=== PATIENT | female | born 1970 | race American Indian/Alaskan Native ===

== ENCOUNTER 2016-12-20 08:39 | Emergency (ER) | payer BC ==
[2016-12-20 08:39] VITALS: BMI 44.9
[2016-12-20 08:51] VITALS: TEMP 98.1; O2SAT 98
[2016-12-20] MEDS ORDERED: DiphenhydrAMINE 50 mg/ml Inj IVP STA (08:57)
--- NOTE | 2016-12-20 09:22 | ED PDOC ---
Arrival/HPI - General Chief Complaint: Headache Time Seen by Provider: 12/20/16 08:40 Historian: Patient - History of Present Illness Narrative History of Present Illness (Text): 12/20/16 08:55 Rianna Hazel, a 45 year old female, whose past medical history includes hypertension, presents to the emergency department complaining of a headache for the past two days. Patient also notes that she took motrin, but this did not alleviate her symptoms. She notes that the light bothers her. Patient denies any nausea, vomiting, fevers, urinary problems, or any other complaints at this time. PMD: Dr. Norman Time/Duration: Other (2 days) Symptom Onset: Sudden Symptom Course: Unchanged Activities at Onset: Rest Modifying Factors (Text): motrin did not alleviate headache Context: Home Associated Symptoms (Text): none Past Medical History - Provider Review Nursing Documentation Reviewed: Yes - Past History Past History: No Previous - Infectious Disease Hx of Infectious Diseases: None - Tetanus Immunization Tetanus Immunization: Unknown - Past Medical History Past Medical History: No Previous - Cardiac Hx Cardiac Disorders: Yes Hx Hypertension: Yes - Pulmonary Hx Respiratory Disorders: No - Neurological Hx Neurological Disorder: No - HEENT Hx HEENT Disorder: No - Renal Hx Renal Disorder: No - Endocrine/Metabolic Hx Endocrine Disorders: No - Hematological/Oncological Hx Blood Disorders: No - Integumentary Hx Dermatological Disorder: No - Musculoskeletal/Rheumatological Hx Musculoskeletal Disorders: Yes (ELBOW TENDONITIS) Hx Falls: No - Gastrointestinal Hx Gastrointestinal Disorders: No - Genitourinary/Gynecological Hx Genitourinary Disorders: No (4 ABORTIONS, TUBAL LIGATION) - Psychiatric Hx Psychophysiologic Disorder: No Hx Anxiety: No Hx Bipolar Disorder: No Hx Depression: No Hx Emotional Abuse: No Hx Hallucinations: No Hx Panic Disorder: No Hx Post Traumatic Stress Disorder: No Hx Psychosis: No Hx Physical Abuse: No Hx Schizophrenia: No Hx Sexual Abuse: No Hx Substance Use: No - Surgical History Hx Tubal Ligation: Yes - Anesthesia Hx Anesthesia: Yes Hx Anesthesia Reactions: No Hx Malignant Hyperthermia: No - Suicidal Assessment Feels Threatened In Home Enviroment: No Family/Social History - Physician Review Nursing Documentation Reviewed: Yes Family/Social History: No Known Family HX Smoking Status: Never Smoked Hx Alcohol Use: Yes (SOCIALLY) Hx Substance Use: No Hx Substance Use Treatment: No Allergies/Home Meds Allergies/Adverse Reactions: Allergies No Known Allergies Allergy (Verified 04/16/17 08:47) Home Medications: Home Meds Medication Instructions Recorded Confirmed amLODIPine [Norvasc] 10 mg PO DAILY 05/28/16 12/20/16 Review of Systems - Physician Review All systems were reviewed & negative as marked: Yes - Review of Systems Constitutional: absent: Fevers Gastrointestinal: absent: Nausea, Vomiting Genitourinary Female: absent: Dysuria, Frequency, Hematuria, Urine Output Changes Neurological: Headache Physical Exam Vital Signs Reviewed: Yes Vital Signs Temp Pulse Resp BP Pulse Ox 12/20/16 10:18 68 16 116/60 98 12/20/16 08:43 98.1 F 75 20 109/79 98 12/20/16 08:39 98.1 F 75 20 109/79 98 Temperature: Afebrile Blood Pressure: Normal Pulse: Regular Respiratory Rate: Normal Appearance: Positive for: Well-Appearing, Non-Toxic, Comfortable Pain Distress: None Mental Status: Positive for: Alert and Oriented X 3 - Systems Exam Head: Present: Atraumatic, Normocephalic Pupils: Present: PERRL Extroacular Muscles: Present: EOMI Conjunctiva: Present: Normal Mouth: Present: Moist Mucous Membranes Neck: Present: Normal Range of Motion, Other (neck is supple with no meningismus ) Respiratory/Chest: Present: Clear to Auscultation, Good Air Exchange. No: Respiratory Distress, Accessory Muscle Use Cardiovascular: Present: Regular Rate and Rhythm, Normal S1, S2. No: Murmurs Abdomen: Present: Normal Bowel Sounds. No: Tenderness, Distention, Peritoneal Signs Upper Extremity: Present: Normal Inspection. No: Cyanosis, Edema Lower Extremity: Present: Normal Inspection. No: Edema Neurological: Present: GCS=15, CN II-XII Intact, Speech Normal Skin: Present: Warm, Dry, Normal Color. No: Rashes Psychiatric: Present: Alert, Oriented x 3, Normal Insight, Normal Concentration Medical Decision Making ED Course and Treatment: 12/20/16 09:26 Impression: 45 year old female with headache. Differential Diagnosis include but are not limited to: Plan: -- CT head -- Urinalysis -- Labs -- Benadryl, Reglan -- Reassess and disposition Prior Visits: Notes and results from previous visits were reviewed. Patient reported to the emergency department on 10/13/16 for evaluation of left sided rib pain and cough. Progress Notes: CT head: Creator : Jesus Avila MD FINDINGS: HEMORRHAGE: No acute parenchymal, subarachnoid or extra-axial hemorrhage. BRAIN: Mild chronic periventricular white matter ischemic changes seen extending peripherally into the deep white matter both cerebral hemispheres. VENTRICLES: Unremarkable. No hydrocephalus. CALVARIUM: Unremarkable. PARANASAL SINUSES: Frontal sinuses are hypoplastic. Remaining visualized paranasal sinuses are well-developed. No mucoperiosteal significant inflammatory changes. MASTOID AIR CELLS: Subtotal opacification left mastoid air complex. There also appears to be partial with opacification of the right mastoid air complex. OTHER FINDINGS: None. IMPRESSION: No acute intracranial hemorrhage. Mild chronic white matter ischemic changes. 12/20/16 10:15 Patient reports she currently does not have a headache. Patient asks for discharge. On reevaluation the patient feels better and is in no acute distress. I have discussed the results and plan with the patient, who expresses understanding. Will discharge patient home.Patient agrees with the plan to be discharged home. Patient is stable for discharge. Patient was instructed to follow up with PMD in 1-2 days or return if symptoms persist/worsen or new concerning symptoms arise. Patient given the opportunity to ask questions, and all questions were answered. - Lab Interpretations Lab Results: 12/20/16 09:00 12/20/16 09:00 Lab Results 12/20/16 09:00: WBC 5.1 D, RBC 4.27, Hgb 12.7, Hct 37.1, MCV 86.9, MCH 29.7, MCHC 34.2, RDW 13.3, Plt Count 304, MPV 9.7, Gran % 50.2, Lymph % (Auto) 41.3 H , [place] % (Auto) 6.9 H, Eos % (Auto) 0.8 L, Baso % (Auto) 0.8, Gran # 2.55, Lymph # 2.1, [place] # 0.4, Eos # 0.0, Baso # 0.04, PT 10.4, INR 0.96, APTT 23.8, Sodium 139, Potassium 3.9, Chloride 105, Carbon Dioxide 24, Anion Gap 14, BUN 14 , Creatinine 0.7, Est GFR ( Amer) > 60, Est GFR (Non-Af Amer) > 60, Random Glucose 121 H, Calcium 9.0, Total Bilirubin 0.5, AST 21, ALT 30, Alkaline Phosphatase 50, Total Protein 8.3, Albumin 3.9, Globulin 4.5, Albumin/ Globulin Ratio 0.9 L - RAD Interpretation Radiology Orders: 12/20/16 08:57 HEAD W/O CONTRAST [CT] Stat - Medication Orders Current Medication Orders: Discontinued Medications Diphenhydramine HCl (Benadryl) 25 mg IVP STAT STA Stop: 12/20/16 08:58 Last Admin: 12/20/16 09:10 Dose: 25 MG IVP Administration Document 12/20/16 09:10 SRE (Rec: 12/20/16 09:14 SRE [id number]) Charges for Administration # of IVP Administrations 1 Metoclopramide HCl (Reglan) 10 mg IVP STAT STA Stop: 12/20/16 08:58 Last Admin: 12/20/16 09:14 Dose: 10 MG IVP Administration Document 12/20/16 09:14 SRE (Rec: 12/20/16 09:14 SRE [id number]) Charges for Administration # of IVP Administrations 1 - Scribe Statement The provider has reviewed the documentation as recorded by the Scribe Provider Attestation: Abdulkadir Mcbride All medical record entries made by the Scribe were at my direction and personally dictated by me. I have reviewed the chart and agree that the record accurately reflects my personal performance of the history, physical exam, medical decision making, and the department course for this patient. I have also personally directed, reviewed, and agree with the discharge instructions and disposition. Disposition/Present on Arrival - Present on Arrival Any Indicators Present on Arrival: No History of DVT/PE: No History of Uncontrolled Diabetes: No Urinary Catheter: No History of Decub. Ulcer: No History Surgical Site Infection Following: None - Disposition Have Diagnosis and Disposition been Completed?: Yes Diagnosis: Headache Disposition: HOME/ ROUTINE Disposition Time: 10:02 Condition: STABLE Discharge Instructions (ExitCare): Acute Headache (ED) Additional Instructions: please follow up with your doctor. return to er with worsening symptoms or concerns Prescriptions: Acetaminophen/Butalbital/Caf [Fioricet] 1 tab PO Q8 PRN #20 tab PRN Reason: Headache Referrals: Cornell Padilla MD [Staff Provider] - Follow up with primary Steve Padilla MD [Staff Provider] - Follow up with primary Forms: WORK NOTE
[2016-12-20 09:27] LABS: ADD MANUAL DIFF? NO
[2016-12-20 09:36] LABS: BASO # 0.04 K/mm3 (0.0-2.0); BASO % 0.8 % (0.0-3.0); EOS % 0.8 % (1.5-5.0); GRAN # 2.55 (1.4-6.5); GRAN % 50.2 % (50.0-68.0); HEMATOCRIT 37.1 % (36.0-48.0); LYMPH # 2.1 (1.2-3.4); LYMPH % 41.3 % (22.0-35.0); MEAN CELL VOLUME 86.9 fL (80.0-105.0); MEAN CORPUSCULAR HEMOGLOBIN 29.7 pg (25.0-35.0); MEAN CORPUSCULAR HGB CONC 34.2 g/dl (31.0-37.0); MEAN PLATELET VOLUME 9.7 fl (7.0-11.0); MONO # 0.4 (0.1-0.6); MONO % 6.9 % (1.0-6.0); PLATELET COUNT 304 10^3/uL (120.0-450.0); RED CELL DISTRIBUTION WIDTH 13.3 % (11.5-14.5); WHITE BLOOD COUNT 5.1 10^3/ul (4.5-11.0)
--- NOTE | 2016-12-20 09:42 | CT ---
PROCEDURE: CT HEAD WITHOUT CONTRAST. HISTORY: aguiar COMPARISON: None available. TECHNIQUE: Axial computed tomography images were obtained through the head/brain without intravenous contrast. Radiation dose: Total exam DLP = 677.45 mGy-cm. This CT exam was performed using one or more of the following dose reduction techniques: Automated exposure control, adjustment of the mA and/or kV according to patient size, and/or use of iterative reconstruction technique. FINDINGS: HEMORRHAGE: No acute parenchymal, subarachnoid or extra-axial hemorrhage. BRAIN: Mild chronic periventricular white matter ischemic changes seen extending peripherally into the deep white matter both cerebral hemispheres. The VENTRICLES: Unremarkable. No hydrocephalus. CALVARIUM: Unremarkable. PARANASAL SINUSES: Frontal sinuses are hypoplastic. Remaining visualized paranasal sinuses are well-developed. No mucoperiosteal significant inflammatory changes. MASTOID AIR CELLS: Subtotal opacification left mastoid air complex. There also appears to be partial with opacification of the right mastoid air complex. OTHER FINDINGS: None. IMPRESSION: No acute intracranial hemorrhage. Mild chronic white matter ischemic changes.
[2016-12-20 09:45] LABS: ALB/GLOB RATIO 0.9 (1.1-1.8); ALKALINE PHOSPHATASE 50 U/L (38-133); ALT/SGPT 30 U/L (7-56); AST/SGOT 21 U/L (15-39); BILIRUBIN,TOTAL 0.5 mg/dL (0.2-1.3); BLOOD UREA NITROGEN 14 mg/dL (7-21); CARBON DIOXIDE 24 mmol/L (21-33); CHLORIDE 105 mmol/L (98-107); GFR AFRICAN-AMERICAN > 60; GLUCOSE,RANDOM 121 mg/dL (70-110); POTASSIUM 3.9 mmol/L (3.6-5.0); SODIUM 139 mmol/L (132-148); TOTAL PROTEIN 8.3 g/dL (5.8-8.3)
[2016-12-20 09:46] LABS: INR 0.96 (0.93-1.08); PARTIAL THROMBOPLASTIN TIME 23.8 Seconds (23.7-30.8)
[2016-12-20 10:24] VITALS: BP 116/60; PULSE 68; RESP 16
== END 2016-12-20 10:25 | disposition home or self-care (01) ==
LOC: ED 08:39
DX: R51 Headache (principal)
CPT/HCPCS: 70450; 80053; 85025; 85610; 85730; 96374; 96375; 99285; J1200; J2765

== ENCOUNTER 2017-04-05 18:08 | Emergency (ER) | payer BC ==
[2017-04-05 18:44] VITALS: RESP 18; TEMP 98.6; BMI 43.3
--- NOTE | 2017-04-05 19:23 | ED PDOC ---
Arrival/HPI - General Chief Complaint: Eye Problem Time Seen by Provider: 04/05/17 19:01 Historian: Patient - History of Present Illness Narrative History of Present Illness (Text): 04/05/17 19:19 46 y/o female, pmh including htn, wears reading glasses but no eye contact, no eye surgery, c/o send in by Dr. Jose Luis Trinh (opthalmologist) for elevation of the rt. eye intraocular pressure. Pt. stated that she feel rt. eye pressure about 2 days ago, associatd with the headache and rt. eye redness, no change in vision, no dizziness, no palpitation, no neck pain, no numbness or tingling, no other medical or psychological complaints. Past Medical History - Provider Review Nursing Documentation Reviewed: Yes - Past History Past History: No Previous - Infectious Disease Hx of Infectious Diseases: None - Tetanus Immunization Tetanus Immunization: Unknown - Past Medical History Past Medical History: No Previous - Cardiac Hx Cardiac Disorders: Yes Hx Hypertension: Yes - Pulmonary Hx Respiratory Disorders: No - Neurological Hx Neurological Disorder: No - HEENT Hx HEENT Disorder: No - Renal Hx Renal Disorder: No - Endocrine/Metabolic Hx Endocrine Disorders: No - Hematological/Oncological Hx Blood Disorders: No - Integumentary Hx Dermatological Disorder: No - Musculoskeletal/Rheumatological Hx Musculoskeletal Disorders: Yes (ELBOW TENDONITIS) Hx Falls: No - Gastrointestinal Hx Gastrointestinal Disorders: No - Genitourinary/Gynecological Hx Genitourinary Disorders: No (4 ABORTIONS, TUBAL LIGATION) - Psychiatric Hx Psychophysiologic Disorder: No Hx Anxiety: No Hx Bipolar Disorder: No Hx Depression: No Hx Emotional Abuse: No Hx Hallucinations: No Hx Panic Disorder: No Hx Post Traumatic Stress Disorder: No Hx Psychosis: No Hx Physical Abuse: No Hx Schizophrenia: No Hx Sexual Abuse: No Hx Substance Use: No - Surgical History Hx Tubal Ligation: Yes - Anesthesia Hx Anesthesia: Yes Hx Anesthesia Reactions: No Hx Malignant Hyperthermia: No - Suicidal Assessment Feels Threatened In Home Enviroment: No Family/Social History - Physician Review Nursing Documentation Reviewed: Yes Family/Social History: Unknown Family HX Smoking Status: Never Smoked Hx Alcohol Use: Yes (SOCIALLY) Hx Substance Use: No Hx Substance Use Treatment: No Allergies/Home Meds Allergies/Adverse Reactions: Allergies No Known Allergies Allergy (Verified 12/20/16 08:47) Home Medications: Home Meds Medication Instructions Recorded Confirmed amLODIPine [Norvasc] 10 mg PO DAILY 05/28/16 04/05/17 Review of Systems - Review of Systems Constitutional: absent: Fatigue, Fevers Eyes: Other (rt. eye redness and pressure sensation). absent: Vision Changes ENT: absent: Hearing Changes Respiratory: absent: SOB, Cough Cardiovascular: absent: Chest Pain Gastrointestinal: absent: Abdominal Pain, Nausea, Vomiting Skin: absent: Rash, Pruritis, Skin Lesions, Ulcer Neurological: absent: Headache, Dizziness, Focal Weakness Physical Exam Vital Signs Reviewed: Yes Vital Signs Temp Pulse Resp BP Pulse Ox 04/05/17 18:44 98.6 F 70 18 145/84 100 Temperature: Afebrile Blood Pressure: Normal Pulse: Regular Respiratory Rate: Normal Appearance: Positive for: Well-Appearing, Non-Toxic, Comfortable Pain Distress: None Mental Status: Positive for: Alert and Oriented X 3 - Systems Exam Head: Present: Atraumatic, Normocephalic, Other (no temporal artery tenderness. ). No: Tenderness, Contusion, Swelling, Ecchymosis, Abrasion, Laceration Pupils: Present: PERRL Extroacular Muscles: Present: EOMI, Other (Eyes: bilateral vision without correction 20/25, rt. eye vision without correction 20/25 vs. lt. eye vision without correction 20/25, +rt. conjunctivitis with mild tearing with no fluorsein up take, no corneal abrasion or laceration, FREOM without limitation, no periorbital swelling or drooping eyelids, rt. intraocular pressure is 21) Mouth: Present: Moist Mucous Membranes Neck: Present: Normal Range of Motion Respiratory/Chest: Present: Clear to Auscultation, Good Air Exchange. No: Respiratory Distress, Accessory Muscle Use Cardiovascular: Present: Regular Rate and Rhythm, Normal S1, S2. No: Murmurs Abdomen: Present: Normal Bowel Sounds. No: Tenderness, Distention, Peritoneal Signs Back: Present: Normal Inspection Upper Extremity: Present: Normal Inspection. No: Cyanosis, Edema Lower Extremity: Present: Normal Inspection. No: Edema Neurological: Present: GCS=15, CN II-XII Intact, Speech Normal Skin: Present: Warm, Dry, Normal Color. No: Rashes Psychiatric: Present: Alert, Oriented x 3, Normal Insight, Normal Concentration Medical Decision Making ED Course and Treatment: 04/05/17 19:24 -CT orbital/head -Intraocular pressure -Call Dr. wolf for consult. 04/05/17 22:14 -CT head and orbital show no acute findings. -I spoke to Dr. wolf and discussed the case in detail which he stated that he didn't send the patient to the ER which he stated that her introcular pressure on the rt. eye is on the upper normal limit and not high with no acute treatment needed, just need outpatient follow up with no other treatment needed. -rt. eye conjunctivitis resolved which patient stated that the opthalmologist Dr. Dumont prescribed the drop for her rt. eye redness. -Discharge home with education on follow up with your own pmd and opthamologist within 2 days, fill the prescription that you prescribed by your electrical maintenance technician , return to the ER for any new or worsening signs or symptoms. Please avoid all eye products including the eyelashes make or artificial eye lashes. - RAD Interpretation Radiology Orders: 04/05/17 19:35 HEAD W/O CONTRAST [CT] Stat ORBITS/ FACIALS W/O CONTRAST [CT] Stat CT Head: FINDINGS: Brain: No intracranial hemorrhage. No mass. No definite edema. Ventricles: No hydrocephalus. Bones/joints: No acute fracture. Soft tissues: Unremarkable. Mastoid air cells: Partial opacification of LEFT mastoid, stable. IMPRESSION: 1. No acute intracranial abnormality. 2. See orbital CT report for additional details. 3. Incidental/non-acute findings are described above. Thank you for allowing us to participate in the care of your patient. Dictated and Authenticated by: Felipe Gomez MD 04/05/2017 9:38 PM Eastern Time ([place] & [place]) -------- CT orbit: COMPARISON: CT - HEAD W/O CONTRAST 12/20/2016 9:21:14 AM FINDINGS: Orbits: Unremarkable as visualized. Sinuses: No acute sinusitis. Bones/joints: No acute fracture. Soft tissues: Unremarkable. IMPRESSION: 1. No acute findings. 2. Non-acute findings are described above. Thank you for allowing us to participate in the care of your patient. Dictated and Authenticated by: Felipe Gomez MD 04/05/2017 9:42 PM Eastern Time ([place] & [place]) Hand Screen Printer: Radiologist - PA / BIOINFORMATICS DEVELOPER / Resident Statement MD/DO has reviewed & agrees with the documentation as recorded. Disposition/Present on Arrival - Present on Arrival Any Indicators Present on Arrival: No History of DVT/PE: No History of Uncontrolled Diabetes: No Urinary Catheter: No History of Decub. Ulcer: No History Surgical Site Infection Following: None - Disposition Have Diagnosis and Disposition been Completed?: Yes Diagnosis: Conjunctivitis Disposition: HOME/ ROUTINE Disposition Time: 22:18 Patient Plan: Discharge Condition: GOOD Additional Instructions: -Discharge home with education on follow up with your own pmd and opthamologist within 2 days, fill the prescription that you prescribed by your electrical maintenance technician , return to the ER for any new or worsening signs or symptoms. Please avoid all eye products including the eyelashes make or artificial eye lashes. Referrals: Jose Luis Norman MD [Primary Care Provider] - Follow up with primary Jose Luis Trinh MD [Staff Provider] - Follow up with primary Forms: [facility] (Mongolian), WORK NOTE
--- NOTE | 2017-04-05 21:39 | CT ---
EXAM: CT Head Without Intravenous Contrast CLINICAL HISTORY: 46 years old, female; Pain; Headache; Tension; Additional info: Headache with rt. Orbital pressure TECHNIQUE: Axial computed tomography images of the head/brain without intravenous contrast. This CT exam was performed using one or more of the following dose reduction techniques: automated exposure control, adjustment of the mA and/or kV according to patient size, and/or use of iterative reconstruction technique. COMPARISON: CT - HEAD W/O CONTRAST 12/20/2016 9:21:14 AM FINDINGS: Brain: No intracranial hemorrhage. No mass. No definite edema. Ventricles: No hydrocephalus. Bones/joints: No acute fracture. Soft tissues: Unremarkable. Mastoid air cells: Partial opacification of LEFT mastoid, stable. IMPRESSION: 1. No acute intracranial abnormality. 2. See orbital CT report for additional details. 3. Incidental/non-acute findings are described above.
--- NOTE | 2017-04-05 21:42 | CT ---
EXAM: CT Orbits Without Intravenous Contrast CLINICAL HISTORY: 46 years old, female; Pain; Eye pain; Right; Additional info: Headache with rt. Orbital pressure TECHNIQUE: Axial computed tomography images of the orbits without intravenous contrast. This CT exam was performed using one or more of the following dose reduction techniques: automated exposure control, adjustment of the mA and/or kV according to patient size, and/or use of iterative reconstruction technique. Coronal and sagittal reformatted images were created and reviewed. COMPARISON: CT - HEAD W/O CONTRAST 12/20/2016 9:21:14 AM FINDINGS: Orbits: Unremarkable as visualized. Sinuses: No acute sinusitis. Bones/joints: No acute fracture. Soft tissues: Unremarkable. IMPRESSION: 1.No acute findings. 2.Non-acute findings are described above.
[2017-04-05 22:40] VITALS: BP 149/86; PULSE 81; O2SAT 97
== END 2017-04-05 22:39 | disposition home or self-care (01) ==
LOC: ED 18:08
DX: H10.9 Unspecified conjunctivitis (principal); I10 Essential (primary) hypertension

== ENCOUNTER 2017-07-21 13:07 | Emergency (ER) | payer BC ==
[2017-07-21 13:46] VITALS: BP 158/98; PULSE 75; RESP 18; TEMP 98; O2SAT 99; BMI 44.4
--- NOTE | 2017-07-21 14:48 | ED PDOC ---
Arrival/HPI - General Chief Complaint: Upper Extremity Problem/Injury Time Seen by Provider: 07/21/17 13:18 Historian: Patient - History of Present Illness Narrative History of Present Illness (Text): 07/21/17 14:45 A 46 year old female presents to the emergency department complaining of right elbow pain for 1 year. Patient reports her pain is exacerbated with extension of her elbow. She notes she is right handed. Patient denies any injury, trauma, fever, chills, nausea, vomiting, abdominal pain, chest pain, shortness of breath , cough or any other complaints. Time/Duration: Other (1 year) Symptom Course: Unchanged Quality: Other Context: Home Past Medical History - Provider Review Nursing Documentation Reviewed: Yes - Past History Past History: No Previous - Infectious Disease Hx of Infectious Diseases: None - Tetanus Immunization Tetanus Immunization: Unknown - Past Medical History Past Medical History: No Previous - Cardiac Hx Cardiac Disorders: Yes Hx Hypertension: Yes - Pulmonary Hx Respiratory Disorders: No - Neurological Hx Neurological Disorder: No - HEENT Hx HEENT Disorder: No - Renal Hx Renal Disorder: No - Endocrine/Metabolic Hx Endocrine Disorders: No - Hematological/Oncological Hx Blood Disorders: No - Integumentary Hx Dermatological Disorder: No - Musculoskeletal/Rheumatological Hx Musculoskeletal Disorders: Yes (ELBOW TENDONITIS) Hx Falls: No - Gastrointestinal Hx Gastrointestinal Disorders: No - Genitourinary/Gynecological Hx Genitourinary Disorders: No (4 ABORTIONS, TUBAL LIGATION) - Psychiatric Hx Psychophysiologic Disorder: No Hx Anxiety: No Hx Bipolar Disorder: No Hx Depression: No Hx Emotional Abuse: No Hx Hallucinations: No Hx Panic Disorder: No Hx Post Traumatic Stress Disorder: No Hx Psychosis: No Hx Physical Abuse: No Hx Schizophrenia: No Hx Sexual Abuse: No Hx Substance Use: No - Surgical History Hx Tubal Ligation: Yes - Anesthesia Hx Anesthesia: Yes Hx Anesthesia Reactions: No Hx Malignant Hyperthermia: No - Suicidal Assessment Feels Threatened In Home Enviroment: No Family/Social History - Physician Review Nursing Documentation Reviewed: Yes Family/Social History: No Known Family HX Smoking Status: Never Smoked Hx Alcohol Use: Yes (SOCIALLY) Hx Substance Use: No Hx Substance Use Treatment: No Allergies/Home Meds Allergies/Adverse Reactions: Allergies No Known Allergies Allergy (Verified 12/20/16 08:47) Home Medications: Home Meds Medication Instructions Recorded Confirmed amLODIPine [Norvasc] 10 mg PO DAILY 05/28/16 04/05/17 Review of Systems - Physician Review All systems were reviewed & negative as marked: Yes - Review of Systems Constitutional: absent: Fevers, Night Sweats Respiratory: absent: SOB, Cough Cardiovascular: absent: Chest Pain Gastrointestinal: absent: Abdominal Pain, Nausea, Vomiting Musculoskeletal: Other (Right elbow pain) Physical Exam Vital Signs Reviewed: Yes Vital Signs Temp Pulse Resp BP Pulse Ox 07/21/17 13:45 98.0 F 75 18 158/98 H 99 Temperature: Afebrile Blood Pressure: Hypertensive Pulse: Regular Respiratory Rate: Normal Appearance: Positive for: Well-Appearing, Non-Toxic, Comfortable Pain Distress: None Mental Status: Positive for: Alert and Oriented X 3 - Systems Exam Head: Present: Atraumatic, Normocephalic Pupils: Present: PERRL Extroacular Muscles: Present: EOMI Conjunctiva: Present: Normal Mouth: Present: Moist Mucous Membranes Neck: Present: Normal Range of Motion Respiratory/Chest: Present: Clear to Auscultation, Good Air Exchange. No: Respiratory Distress, Accessory Muscle Use Cardiovascular: Present: Regular Rate and Rhythm, Normal S1, S2. No: Murmurs Abdomen: Present: Normal Bowel Sounds. No: Tenderness, Distention, Peritoneal Signs Back: Present: Normal Inspection Upper Extremity: Present: Normal ROM, NORMAL PULSES, Tenderness (point tenderness to posterior aspect of right elbow), Neurovascularly Intact. No: Cyanosis, Edema, Swelling, Erythema, Temperature Abnormalties, Deformity Lower Extremity: Present: Normal Inspection. No: Edema Neurological: Present: GCS=15, CN II-XII Intact, Speech Normal Skin: Present: Warm, Dry, Normal Color. No: Rashes Psychiatric: Present: Alert, Oriented x 3, Normal Insight, Normal Concentration Medical Decision Making ED Course and Treatment: 07/21/17 14:45 Impression: A 46 year old female with right elbow pain for 1 year Plan: -- Right elbow xray -- Toradol -- Reassess and disposition Progress Notes: - RAD Interpretation Radiology Orders: 07/21/17 14:01 ELBOW RIGHT 3 VIEWS ROUTINE [RAD] Stat - Medication Orders Current Medication Orders: Discontinued Medications Ketorolac Tromethamine (Toradol) 60 mg IM STAT STA Stop: 07/21/17 14:02 Last Admin: 07/21/17 14:17 Dose: 60 mg MAR Pain Assessment Document 07/21/17 14:17 HI (Rec: 07/21/17 14:17 [facility]-[id number]) Pain Reassessment Is this a pain reassessment? No Sleep Is patient sleeping during reassessment? No Presence of Pain Presence of Pain Yes Pain Scale Used Pain Scale Used Numeric Location Left, Right or Bilateral Right Upper or Lower Lower Pain Location Body Site Arm IM Administration Charges Document 07/21/17 14:17 HI (Rec: 07/21/17 14:17 [id number]) Charges for Administration # of IM Administrations 1 - Scribe Statement The provider has reviewed the documentation as recorded by the Anuibe Joanne Cervantes Provider Scribe Attestation: All medical record entries made by the Scribe were at my direction and personally dictated by me. I have reviewed the chart and agree that the record accurately reflects my personal performance of the history, physical exam, medical decision making, and the department course for this patient. I have also personally directed, reviewed, and agree with the discharge instructions and disposition. Disposition/Present on Arrival - Present on Arrival Any Indicators Present on Arrival: No History of DVT/PE: No History of Uncontrolled Diabetes: No Urinary Catheter: No History of Decub. Ulcer: No History Surgical Site Infection Following: None - Disposition Have Diagnosis and Disposition been Completed?: Yes Diagnosis: Elbow pain Disposition: HOME/ ROUTINE Disposition Time: 15:10 Condition: GOOD Discharge Instructions (ExitCare): Elbow Sprain (ED) Additional Instructions: Thank you for letting us take care of you today. You were treated for elbow pain. The emergency medical care you received today was directed at your acute symptoms. If you were prescribed any medication, please fill it and take as directed. It may take several days for your symptoms to resolve. Return to the Emergency Department if your symptoms worsen, do not improve, or if you have any other problems. Please contact your doctor or call one of the physicians/clinics you have been referred to that are listed on the Patient Visit Information form that is included in your discharge packet. Bring any paperwork you were given at discharge with you along with any medications you are taking to your follow up visit. Our treatment cannot replace ongoing medical care by a primary care provider (PCP) outside of the emergency department. Thank you for allowing the [facility] team to be part of your care today. Follow up with Dr. Norman as scheduled next week for re-evaluation and further management. Prescriptions: Cyclobenzaprine [Cyclobenzaprine HCl] 10 mg PO Q8 PRN #20 tab PRN Reason: Muscle Spasm Ibuprofen [Motrin] 600 mg PO Q6 PRN #20 tab PRN Reason: Pain, Moderate (4-7) Referrals: Jose Luis Norman MD [Primary Care Provider] - Follow up with primary Forms: [employer] (Namibian)
--- NOTE | 2017-07-21 15:06 | RAD ---
PROCEDURE: Radiographs of the right elbow. HISTORY: r/o fx COMPARISON: No prior. FINDINGS: BONES: Minimal medial ulnar sided osseous hypertrophy suggested consistent early senescent changes. No fracture. JOINTS: Ulno humeral minimal osteoarthritis. SOFT TISSUES: Normal. JOINT EFFUSION: None. OTHER FINDINGS: None. IMPRESSION: No fracture. Minimal osteoarthrosis - Ulno humeral joint
== END 2017-07-21 15:30 | disposition home or self-care (01) ==
LOC: ED 13:07
DX: M25.521 Pain in right elbow (principal); I10 Essential (primary) hypertension; Z98.51 Tubal ligation status
CPT/HCPCS: 73080; 96372; 99284; J1885

== ENCOUNTER 2018-09-14 13:30 | Emergency (ER) | payer BC ==
[2018-09-14 13:30] VITALS: BMI 44.4
[2018-09-14 13:54] VITALS: RESP 18; TEMP 99
[2018-09-14] MEDS ORDERED: Sodium Chloride 0.9% 1,000 ML IV STA (14:09)
[2018-09-14] MEDS ORDERED: DiphenhydrAMINE 50 mg/ml Inj IVP STA (14:09)
--- NOTE | 2018-09-14 14:28 | ED PDOC ---
Arrival/HPI - General Chief Complaint: Headache Time Seen by Provider: 09/14/18 13:35 Historian: Patient - History of Present Illness Narrative History of Present Illness (Text): 47 y/o female with PMH of HTN presents to the ED c/o headache x 5 days that worsened last night. Headache was gradual in onset, generalized, throbbing, with associated photophobia and phonophobia. Admits to having headaches like this before, believes it may be secondary to increased salt intake. States she ran out of her amlodipine 1 week ago, has a prescription from her family doctor, but has been unable to fill it. Has not taken any medication for pain. Denies vision changes, dizziness, fever, chills, chest pain, SOB, abdominal pain, N/V, weakness, numbness, paresthesias, facial droop, difficulty speaking, difficulty walking, urinary symptoms, or any other associated complaints. Past Medical History - Provider Review Nursing Documentation Reviewed: Yes - Past History Past History: No Previous - Infectious Disease Hx of Infectious Diseases: None - Tetanus Immunization Tetanus Immunization: Unknown - Past Medical History Past Medical History: No Previous - Cardiac Hx Cardiac Disorders: Yes Hx Hypertension: Yes - Pulmonary Hx Respiratory Disorders: No - Neurological Hx Neurological Disorder: No - HEENT Hx HEENT Disorder: No - Renal Hx Renal Disorder: No - Endocrine/Metabolic Hx Endocrine Disorders: No - Hematological/Oncological Hx Blood Disorders: No - Integumentary Hx Dermatological Disorder: No - Musculoskeletal/Rheumatological Hx Musculoskeletal Disorders: Yes (ELBOW TENDONITIS) Hx Falls: No - Gastrointestinal Hx Gastrointestinal Disorders: No - Genitourinary/Gynecological Hx Genitourinary Disorders: No (4 ABORTIONS, TUBAL LIGATION) - Psychiatric Hx Psychophysiologic Disorder: No Hx Anxiety: No Hx Bipolar Disorder: No Hx Depression: No Hx Emotional Abuse: No Hx Hallucinations: No Hx Panic Disorder: No Hx Post Traumatic Stress Disorder: No Hx Psychosis: No Hx Physical Abuse: No Hx Schizophrenia: No Hx Sexual Abuse: No Hx Substance Use: No - Surgical History Hx Tubal Ligation: Yes - Anesthesia Hx Anesthesia: Yes Hx Anesthesia Reactions: No Hx Malignant Hyperthermia: No - Suicidal Assessment Feels Threatened In Home Enviroment: No Family/Social History - Physician Review Nursing Documentation Reviewed: Yes Family/Social History: No Known Family HX Smoking Status: Never Smoked Hx Alcohol Use: Yes (SOCIALLY) Hx Substance Use: No Hx Substance Use Treatment: No Allergies/Home Meds Allergies/Adverse Reactions: Allergies No Known Allergies Allergy (Verified 12/20/16 08:47) Home Medications: Home Meds Medication Instructions Recorded Confirmed amLODIPine [Norvasc] 10 mg PO DAILY 05/28/16 09/14/18 Review of Systems - Physician Review All systems were reviewed & negative as marked: Yes - Review of Systems Constitutional: Normal. absent: Fatigue, Fevers Eyes: Photophobia. absent: Vision Changes, Eye Pain ENT: Normal. absent: Hearing Changes, Sore Throat, Sinus Congestion Respiratory: Normal. absent: SOB, Cough Cardiovascular: Normal. absent: Chest Pain, Palpitations, Calf Pain, Syncope Gastrointestinal: Normal. absent: Abdominal Pain, Stool Changes, Nausea, Vomiting, Appetite Changes Genitourinary Female: Normal. absent: Dysuria, Frequency, Hematuria, Vaginal Bleeding, Vaginal Discharge Musculoskeletal: Normal. absent: Arthralgias, Back Pain, Neck Pain Skin: Normal. absent: Rash Neurological: Headache. absent: Dizziness, Focal Weakness, Gait Changes Endocrine: Normal Hemo/Lymphatic: Normal Psychiatric: Normal Physical Exam Vital Signs Reviewed: Yes Vital Signs Temp Pulse Resp BP Pulse Ox 09/14/18 13:30 99 F 73 18 144/86 98 Temp Pulse Resp BP Pulse Ox 99 F 65 18 131/87 99 09/14/18 13:30 09/14/18 17:18 09/14/18 17:18 09/14/18 17:18 09/14/18 17:18 Temperature: Afebrile Blood Pressure: Normal Pulse: Regular Respiratory Rate: Normal Appearance: Positive for: Well-Appearing, Non-Toxic, Uncomfortable Pain Distress: Mild Mental Status: Positive for: Alert and Oriented X 3 - Systems Exam Head: Present: Atraumatic, Normocephalic Pupils: Present: PERRL Extroacular Muscles: Present: EOMI Conjunctiva: Present: Normal Ears: Present: Normal, NORMAL TM, Normal Canal Mouth: Present: Moist Mucous Membranes Nose (External): Present: Atraumatic Nose (Internal): Present: Normal Inspection Neck: Present: Normal Range of Motion. No: Meningeal Signs, Paraspinal Tenderness Respiratory/Chest: Present: Clear to Auscultation, Good Air Exchange. No: Respiratory Distress, Accessory Muscle Use Cardiovascular: Present: Regular Rate and Rhythm, Normal S1, S2, Peripheal Pulses Present Abdomen: Present: Normal Bowel Sounds. No: Tenderness, Distention, Peritoneal Signs, Rebound, Guarding Back: Present: Normal Inspection. No: CVA Tenderness, Midline Tenderness, Paraspinal Tenderness Upper Extremity: Present: Normal Inspection, Normal ROM, NORMAL PULSES, Neurov ascularly Intact, Capillary Refill < 2s. No: Cyanosis, Edema, Temperature Abnormalties Lower Extremity: Present: Normal Inspection, NORMAL PULSES, Normal ROM, Neurovascularly Intact, Capillary Refill < 2 s. No: Temperature Abnormalties Neurological: Present: GCS=15, CN II-XII Intact, Speech Normal, Motor Func Grossly Intact, Normal Sensory Function, Gait Normal Skin: Present: Warm, Dry, Normal Color. No: Rashes Lymphatic: No: Cervical Adenopathy Psychiatric: Present: Alert, Oriented x 3, Normal Insight, Normal Concentration, Normal Affect, Normal Mood Medical Decision Making ED Course and Treatment: Initial Plan: * CBC, CMP * Coags * UA, culture * Head CT * Rapid Flu * IVF * Tylenol * Reglan * Benadryl On initial exam, patient non-toxic but appears uncomfortable, resting in stretcher, visibly photophobic, lights off, wearing large sunglasses. Complaining of generalized throbbing headache of gradual onset over the last few days. States it may have been caused by the increased salt in her diet and lack of BP med compliance. Associated photophobia and phonophobia. Denies vision changes, dizziness, neck pain, N/V, back pain, chest pain, SOB. Bloodwork unremarkable Flu negative, patient afebrile, low suspicion for flu. Urine with trace leuk esterase, will treat with Keflex. Head CT shows no acute intracranial pathology. 16:08 Patient reports complete resolution of headache, asking for discharge home. Vital signs have improved, including BP. Patient states that she has a prescription for amlodipine at home but has not had time to fill it. Advised to fill prescription and continue medication as prescribed as soon as possible. Diagnostic testing results and plan of care discussed with patient. Strict instructions given regarding prescription use, importance of followup, and signs/symptoms to return to ER including recurrent severe headache, vision changes, dizziness, chest pain, SOB, or any other new/worsening symptoms. Pt verbalized understanding of discussion. Patient is A&Ox3, ambluating with steady gait, with vital signs stable for discharge. - Lab Interpretations Lab Results: 09/14/18 15:00 09/14/18 15:00 Lab Results 09/14/18 15:30: Influenza Typ A,B (EIA) Negative for flu a/b 09/14/18 15:21: PT 10.7, INR 0.94, APTT 24.7 L 09/14/18 15:00: Sodium 137, Potassium 4.1, Chloride 106, Carbon Dioxide 24, Anion Gap 12, BUN 16, Creatinine 0.8, Est GFR ( Amer) > 60, Est GFR (Non- Af Amer) > 60, Random Glucose 93, Calcium 9.6, Phosphorus 4.1, Magnesium 2.0, Total Bilirubin 0.3, AST 30, ALT 33, Alkaline Phosphatase 65, Total Protein 8.4 H, Albumin 4.4, Globulin 4.1, Albumin/Globulin Ratio 1.1 09/14/18 15:00: Urine Color Light yellow, Urine Appearance Clear, Urine pH 6.5, Ur Specific [place] 1.015, Urine Protein Negative, Urine Glucose (UA) Negative, Urine Ketones Negative, Urine Blood Negative, Urine Nitrate Negative, Urine Bilirubin Negative, Urine Urobilinogen 0.2, Ur Leukocyte Esterase Trace H, Urine RBC 0 - 2, Urine WBC 0 - 2, Ur Epithelial Cells 1 - 3, Urine Bacteria Many 09/14/18 15:00: WBC 7.2, RBC 4.41, Hgb 13.1, Hct 38.4, MCV 87.1, MCH 29.7, MCHC 34.1, RDW 13.1, Plt Count 310, MPV 9.4, Gran % 48.8 L, Lymph % (Auto) 39.9 H, [place] % (Auto) 9.4 H, Eos % (Auto) 1.3 L, Baso % (Auto) 0.6, Gran # 3.50, Lymph # (Auto) 2.9, [place] # (Auto) 0.7 H, Eos # (Auto) 0.1, Baso # (Auto) 0.04 Microbiology Results 09/14/18 20:00 Urine,Clean Catch Urine Culture - Final Gram Positive Cocci I have reviewed the lab results: Yes Interpretation: All labs normal - RAD Interpretation Narrative RAD Interpretations (Text): 09/14/18 14:[address]: FINDINGS: HEMORRHAGE: No intracranial hemorrhage. BRAIN: No mass effect or edema. No atrophy or chronic microvascular ischemic changes. VENTRICLES: Unremarkable. No hydrocephalus. CALVARIUM: Unremarkable. PARANASAL SINUSES: Unremarkable as visualized. No significant inflammatory changes. MASTOID AIR CELLS: Unremarkable as visualized. No inflammatory changes. OTHER FINDINGS: None. IMPRESSION: Normal CT of the Head. Radiology Orders: 09/14/18 14:07 HEAD W/O CONTRAST [CT] Stat Radio Mechanic Apprentice: Radiologist - Medication Orders Current Medication Orders: Sodium Chloride (Sodium Chloride 0.9%) 1,000 mls @ 999 mls/hr IV .Q1H1M STA Stop: 09/14/18 15:09 Discontinued Medications Acetaminophen (Tylenol 325mg Tab) 650 mg PO STAT STA Stop: 09/14/18 14:10 Diphenhydramine HCl (Benadryl) 25 mg IVP STAT STA Stop: 09/14/18 14:10 Metoclopramide HCl (Reglan) 10 mg IVP STAT STA Stop: 09/14/18 14:10 Disposition/Present on Arrival - Present on Arrival Any Indicators Present on Arrival: No History of DVT/PE: No History of Uncontrolled Diabetes: No Urinary Catheter: No History of Decub. Ulcer: No History Surgical Site Infection Following: None - Disposition Have Diagnosis and Disposition been Completed?: Yes Diagnosis: Headache Disposition: HOME/ ROUTINE Disposition Time: 17:00 Patient Plan: Discharge Condition: IMPROVED Discharge Instructions (ExitCare): Migraine Headache (DC), Urinary Tract Infection, Adult (DC) Additional Instructions: Increase fluids Decrease salt intake Keflex every 12 hours for 1 week for UTI Take home medications as prescribed Tylenol as needed for headache Followup with primary doctor tomorrow Return to ER with any new/worsening symptoms Prescriptions: Cephalexin [Keflex] 500 mg PO Q12H 7 Days #14 capsule Referrals: [facility] [Outside] - Follow up with primary Sammy Tejada MD [Staff Provider] - Follow up with primary Anamaria Mendoza MD [Medical Doctor] - Follow up with primary Forms: [employer] (Macedonian), WORK NOTE
--- NOTE | 2018-09-14 14:29 | CT ---
Date of service: 09/14/2018 PROCEDURE: CT HEAD WITHOUT CONTRAST. HISTORY: headache COMPARISON: 04/05/2017 TECHNIQUE: Axial computed tomography images were obtained through the head/brain without intravenous contrast. Radiation dose: Total exam DLP = 955.51 mGy-cm. This CT exam was performed using one or more of the following dose reduction techniques: Automated exposure control, adjustment of the mA and/or kV according to patient size, and/or use of iterative reconstruction technique. FINDINGS: HEMORRHAGE: No intracranial hemorrhage. BRAIN: No mass effect or edema. No atrophy or chronic microvascular ischemic changes. VENTRICLES: Unremarkable. No hydrocephalus. CALVARIUM: Unremarkable. PARANASAL SINUSES: Unremarkable as visualized. No significant inflammatory changes. MASTOID AIR CELLS: Unremarkable as visualized. No inflammatory changes. OTHER FINDINGS: None. IMPRESSION: Normal CT of the Head.
[2018-09-14 15:20] LABS: BASO # 0.04 K/mm3 (0.0-2.0); BASO % 0.6 % (0.0-3.0); EOS # 0.1 (0.0-0.7); EOS % 1.3 % (1.5-5.0); GRAN # 3.5 (1.4-6.5); GRAN % 48.8 % (50.0-68.0); HEMOGLOBIN 13.1 g/dL (12.0-16.0); LYMPH # 2.9 (1.2-3.4); LYMPH % 39.9 % (22.0-35.0); MEAN CELL VOLUME 87.1 fl (80.0-105.0); MEAN CORPUSCULAR HEMOGLOBIN 29.7 pg (25.0-35.0); MEAN CORPUSCULAR HGB CONC 34.1 g/dl (31.0-37.0); MEAN PLATELET VOLUME 9.4 fl (7.0-11.0); MONO # 0.7 (0.1-0.6); MONO % 9.4 % (1.0-6.0); RBC 4.41 10^6/uL (3.5-6.1); RED CELL DISTRIBUTION WIDTH 13.1 % (11.5-14.5); WHITE BLOOD COUNT 7.2 10^3/uL (4.5-11.0)
[2018-09-14 15:35] LABS: ALB/GLOB RATIO 1.1 (1.1-1.8); ALBUMIN 4.4 g/dL (3.0-4.8); ALT/SGPT 33 U/L (7-56); AST/SGOT 30 U/L (14-36); BLOOD UREA NITROGEN 16 mg/dL (7-21); CALCIUM 9.6 mg/dL (8.4-10.5); GFR NON-AFRICAN AMERICAN > 60
[2018-09-14 15:55] LABS: PH,URINE 6.5 (4.7-8.0); URINE APPEARANCE CLEAR (CLEAR); URINE BILIRUBIN NEGATIVE (NEGATIVE); URINE BLOOD NEGATIVE (NEGATIVE); URINE COLOR LIGHT YELLOW (YELLOW); URINE GLUCOSE (UA) NEGATIVE (NEGATIVE); URINE LEUKOCYTE ESTERASE TRACE Leu/uL (NEGATIVE); URINE PROTEIN NEGATIVE mg/dL (<30 mg/dL); URINE UROBILINOGEN 0.2 E.U./dL (<1 E.U./dL)
[2018-09-14 16:20] LABS: URINE BACTERIA MANY /hpf; URINE RBC 0 - 2 /hpf (0-2); URINE WBC 0 - 2 /hpf (0-6)
[2018-09-14 16:30] LABS: INR 0.94; PARTIAL THROMBOPLASTIN TIME 24.7 Seconds (25.1-36.5); PROTHROMBIN TIME 10.7 SECONDS (9.4-12.5)
[2018-09-14 17:19] VITALS: BP 131/87; PULSE 65; O2SAT 99
== END 2018-09-14 17:18 | disposition home or self-care (01) ==
LOC: ED 13:30
DX: R51 Headache (principal); I10 Essential (primary) hypertension
CPT/HCPCS: 70450; 80053; 81001; 83735; 84100; 85025; 85610; 85730; 87086; 87804; 96361; 96374; 96375; 99285; J1200; J2765; J7030